=== PATIENT | female | born 2000 | race Caucasian/White ===

== ENCOUNTER 2018-11-07 21:27 | Inpatient (IN) | payer SELFPAY ==
--- NOTE | 2018-11-07 21:40 | PDOC ---
Rapid Medical Evaluation Chief Complaint: Pain Time Seen by Provider: 11/07/18 21:40 Medical Evaluation: Allergies Allergy/AdvReac Type Severity Reaction Status Date / Time No Known Allergies Allergy Verified 11/07/18 21:38 11/07/18 21:40 I have performed a brief in-person evaluation of this patient. The patient presents with a chief complaint of:generalized abd pain w/ n/v tonight. H/o same in past w/ last CT 09/30 which was read as ? mesenteric adenitis per records here Pertinent physical exam findings:stable and in NAD w/ benign abd I have ordered the following:labs The patient will proceed to the ED for further evaluation. 11/07/18 21:41 Discharge Disposition - Diagnosis Abdominal pain Qualifiers: Abdominal location: generalized Qualified Code(s): R10.84 - Generalized abdominal pain - Referrals - Patient Instructions - Post Discharge Activity
--- NOTE | 2018-11-07 22:38 | PDOC ---
History of Present Illness <Marcia Mg - Last Filed: 11/08/18 02:28> - History of Present Illness Initial Comments: 11/07/18 22:36 Ms. Castellano is a 18 yo female w/ pmh of obesity and mesenteric adenitis on CT 10/03 who presents for evaluation of nausea and vomiting. Patient reports she has had intermittent abdominal pain with nausea and occasional vomiting over the past month however presents as she has had 2 days of increased N/V and became concerned when she noted small amount of blood on latest vomit episode. Denies other symptoms at this time. The patient denies chest pain, shortness of breath, headache and dizziness. Denies fever, chills, diarrhea and constipation. Denies dysuria, frequency, urgency and hematuria. <Benito Euceda - Last Filed: 11/08/18 02:50> - General Chief Complaint: Pain Stated Complaint: ABD PAIN Time Seen by Provider: 11/07/18 21:40 Past History <Marcia Mg - Last Filed: 11/08/18 02:28> - Past Medical History Anemia: No Asthma: No Cancer: No Cardiac Disorders: No CVA: No COPD: No CHF: No - Surgical History Abdominal Surgery: No Appendectomy: No Gastric Stapling: No - Suicide/Smoking/Psychosocial Hx Smoking History: Never smoked <Benito Euceda - Last Filed: 11/08/18 02:50> - Past Medical History Allergies/Adverse Reactions: Allergies Allergy/AdvReac Type Severity Reaction Status Date / Time No Known Allergies Allergy Verified 11/07/18 21:38 Review of Systems - Review of Systems Comments:: 11/07/18 22:37 GENERAL/CONSTITUTIONAL: No fever or chills. No weakness. HEAD, EYES, EARS, NOSE AND THROAT: No change in vision. No ear pain or discharge. No sore throat. CARDIOVASCULAR: No chest pain or shortness of breath RESPIRATORY: No cough, wheezing, or hemoptysis. GASTROINTESTINAL: +N/V + nonspecific abdominal pain as described. No diarrhea or constipation. GENITOURINARY: No dysuria, frequency, or change in urination. MUSCULOSKELETAL: No joint or muscle swelling or pain. No neck or back pain. SKIN: No rash NEUROLOGIC: No headache, vertigo, loss of consciousness, or change in strength/ sensation. ENDOCRINE: No increased thirst. No abnormal weight change HEMATOLOGIC/LYMPHATIC: No anemia, easy bleeding, or history of blood clots. ALLERGIC/IMMUNOLOGIC: No hives or skin allergy. <Benito Euceda - Last Filed: 11/08/18 02:50> *Physical Exam - Vital Signs Last Vital Signs Temp Pulse Resp BP Pulse Ox 98.1 F 89 20 121/72 98 11/07/18 21:38 11/07/18 21:38 11/07/18 21:38 11/07/18 21:38 11/07/18 21:38 <Marcia Mg - Last Filed: 11/08/18 02:28> - Vital Signs Last Vital Signs Temp Pulse Resp BP Pulse Ox 98.1 F 89 20 121/72 98 11/07/18 21:38 11/07/18 21:38 11/07/18 21:38 11/07/18 21:38 11/07/18 21:38 - Physical Exam Comments: 11/07/18 22:37 GENERAL: Awake, alert, and fully oriented, in no acute distress HEAD: No signs of trauma, normocephalic, atraumatic EYES: PERRLA, EOMI, sclera anicteric, conjunctiva clear ENT: Auricles normal inspection, hearing grossly normal, nares patent, oropharynx clear without exudates. Moist mucosa NECK: Normal ROM, supple, no lymphadenopathy, JVD, or masses LUNGS: No distress, speaks full sentences, clear to auscultation bilaterally HEART: Regular rate and rhythm, normal S1 and S2, no murmurs, rubs or gallops, peripheral pulses normal and equal bilaterally. ABDOMEN: +Minimal RUQ ttp, soft, nontender, normoactive bowel sounds. No guarding, no rebound. No masses EXTREMITIES: Normal inspection, Normal range of motion, no edema. No clubbing or cyanosis. NEUROLOGICAL: Cranial nerves II through XII grossly intact. Normal speech, normal gait, no focal sensorimotor deficits SKIN: Warm, Dry, normal turgor, no rashes or lesions noted. <Benito Euceda - Last Filed: 11/08/18 02:50> ED Treatment Course - LABORATORY CBC & Chemistry Diagram: 11/07/18 23:44 11/07/18 23:44 - ADDITIONAL ORDERS Additional order review: Laboratory Results 11/08/18 11/08/18 11/07/18 00:51 00:51 23:44 Sodium 139 Potassium 4.0 Chloride 106 Carbon Dioxide 27 Anion Gap 7 L BUN 9 Creatinine 0.6 Creat Clearance w eGFR 127.45 Random Glucose 92 Calcium 8.9 Total Bilirubin 0.2 AST 14 L ALT 26 Alkaline Phosphatase 135 H Total Protein 6.8 Albumin 3.5 Lipase 100 Urine Color Yellow Urine Appearance Clear Urine pH 6.5 Ur Specific [place] 1.006 L Urine Protein Negative Urine Glucose (UA) Negative Urine Ketones Negative Urine Blood Negative Urine Nitrite Negative Urine Bilirubin Negative Urine Urobilinogen 0.2 Ur Leukocyte Esterase Negative Urine HCG, Qual Negative 11/07/18 23:44 RBC 4.47 MCV 91.8 MCHC 33.1 RDW 14.1 MPV 8.2 Neutrophils % 60.9 Lymphocytes % 30.4 Monocytes % 5.8 Eosinophils % 1.8 Basophils % 1.1 <Marcia Mg - Last Filed: 11/08/18 02:28> - LABORATORY CBC & Chemistry Diagram: 11/07/18 23:44 11/07/18 23:44 <Benito Euceda - Last Filed: 11/08/18 02:50> Medical Decision Making - Medical Decision Making 11/08/18 02:02 Ms. Castellano is a 18 yo female w/ pmh as described who presents for evaluation of blood in vomit. Patient evaluated with labs as below w/out concerning findings. Suspect patient has margoth-rosendo tear. Given patient has recent CT decision made to not repeat at this time. Patient well appearing; will f/u w/ GI for further evaluation. No concern for acute process at this time. 11/08/18 02:48 Patient noted to have increased pain to RUQ. Bedside US performed revealing concern for cholecystitis. Patient will be admitted for further inpatient GI evaluation and official US. <Benito Euceda - Last Filed: 11/08/18 02:50> *DC/Admit/Observation/Transfer - Discharge Dispostion Decision to Admit order: Yes <Marcia Mg - Last Filed: 11/08/18 02:28> <Benito Euceda - Last Filed: 11/08/18 02:50> Diagnosis at time of Disposition: Cholecystitis Abdominal pain Qualifiers: Abdominal location: generalized Qualified Code(s): R10.84 - Generalized abdominal pain - Discharge Dispostion Condition at time of disposition: Guarded - Referrals Referrals: Nicholas Farmer MD [Staff Physician] - - Patient Instructions Printed Discharge Instructions: DI for Abdominal Pain-Adult, DI for Vomiting - - Adult Additional Instructions: You were evaluated today in the ER for your symptoms. No concerning findings were found on labs and we provided you information for GI follow-up. Please make an appointment next week for further evaluation. Return to ER if any increase in pain, nausea, vomiting, or other concerning symptoms.
--- NOTE | 2018-11-07 23:28 | PDOC ---
Attending Attestation - HPI HPI: 11/08/18 00:01 The patient is a 18 year old female with no reported past medical history presents to the emergency department with nausea and vomiting for a month. The patient reports shes been having a month of nausea and vomiting, thats been increasing in frequency in the last couple of days. The patient reports an episode of emesis with a little bit of blood and was concerned. The patient reports she had a CT abdomen done in 10/03, which was significant for mesenteric adenitis. Denies fever, chills, cough, chest pain, SOB, urinary symptoms. - Medical Decision Making 11/08/18 00:01 Documentation prepared by Afia Vaz, acting as medical aide for Marcia gM MD. <Afia Vaz - Last Filed: 11/08/18 00:00> - Resident Resident Name: Benito Euceda - ED Attending Attestation I have performed the following: I have examined & evaluated the patient, The case was reviewed & discussed with the resident, I agree w/resident's findings & plan - HPI HPI: 11/08/18 05:10 Pt's mom had a cholecystectomy. - Physicial Exam PE: 11/08/18 05:07 Pt is obese Pt has RUQ pain and zacarias's sign. SHe was told in [place] that she has large gallstones. She had a fever at the time. She ate only salads and it improved. Now she is back to eating fatty foods. Earlier today she ate enchiladas. - Medical Decision Making 11/08/18 05:09 Bedside sono shows thickened GB was >3mm Pt has multiple large GB stones with shadowing in the GB. She will be given morphine for pain and abx and she will be admitted to med surg for surg eval and likely cholecystectomy. <Marcia Mg - Last Filed: 11/08/18 05:11>
[2018-11-08 00:28] LABS: ALBUMIN 3.5 g/dl (3.4-5.0); ALK PHOS 135 U/L (45-117); ANION GAP 7 MMOL/L (8-16); BILIRUBIN,TOTAL 0.2 mg/dL (0.2-1); BLOOD UREA NITROGEN 9 mg/dL (7-18); CALCIUM 8.9 mg/dL (8.5-10.1); CHLORIDE 106 mmol/L (98-107); CO2 27 mmol/L (21-32); CREATININE 0.6 mg/dL (0.55-1.3); GLUCOSE,RANDOM 92 mg/dL (74-106); LIPASE 100 U/L (73-393); SGOT/AST 14 U/L (15-37); SGPT/ALT 26 U/L (13-61); SODIUM 139 mmol/L (136-145); TOT PROT 6.8 g/dl (6.4-8.2)
[2018-11-08 00:33] LABS: BASO % 1.1 % (0-2.0); EOS % 1.8 % (0-4.5); HEMOGLOBIN 13.6 GM/dL (10.7-15.3); LYMPH % 30.4 % (8-40); MCH 30.4 pg (25.7-33.7); MCHC 33.1 g/dl (32.0-36.0); MEAN CELL VOLUME 91.8 fl (80-96); MEAN PLT VOLUME 8.2 fl (7.5-11.1); MONO % 5.8 % (3.8-10.2); NEUT % 60.9 % (42.8-82.8); PLATELET COUNT 320 K/MM3 (134-434); RBC 4.47 M/mm3 (3.60-5.2); RDW 14.1 % (11.6-15.6); WHITE BLOOD COUNT 13.5 K/mm3 (4.0-10.0)
[2018-11-08 00:58] LABS: PH,URINE 6.5 (5.0-8.0); URINE APPEARANCE CLEAR; URINE BILIRUBIN NEGATIVE (NEGATIVE); URINE COLOR YELLOW; URINE GLUCOSE (UA) NEGATIVE (NEGATIVE); URINE KETONE NEGATIVE (NEGATIVE); URINE LEUK ESTERASE NEGATIVE (NEGATIVE); URINE NITRITE NEGATIVE (NEGATIVE); URINE PROTEIN NEGATIVE (NEGATIVE); URINE UROBILINOGEN 0.2 mg/dL (0.2-1.0)
[2018-11-08] MEDS ORDERED: CEFTRIAXONE 1,000 MG in DEXTROSE 5%-WATER - 50 ML IVPB ONE (02:49)
[2018-11-08] MEDS ORDERED: morphine CARPU-JECT 2 MG/1 ML DISP.SYRIN IVPUSH ONE (02:49)
[2018-11-08] MEDS ORDERED: SODIUM CHLORIDE 0.9% 500 ML INFUS.BAG IV ONE (02:50)
[2018-11-08] MEDS ORDERED: MORPHINE SULFATE 2 MG/ML VIAL ONE (03:26)
[2018-11-08] MEDS ORDERED: CEFTRIAXONE 1 GM/50 ML BAG ONE (03:26)
--- NOTE | 2018-11-08 03:38 | PN ---
Teaching Attending Note Name of Resident: Anand Varner ATTENDING PHYSICIAN STATEMENT I saw and evaluated the patient. I reviewed the resident's note and discussed the case with the resident. I agree with the resident's findings and plan as documented. SUBJECTIVE: Patient is a 18 year old woman with PMH of obesity and mesenteric adenitis on CT 10/03/18 who presents for evaluation of nausea and vomiting. Patient reports she has had intermittent abdominal pain with nausea and occasional vomiting over the past month however presents as she has had 2 days of increased nausea/ vomiting and became concerned when she noted small amount of blood on latest vomit episode. The patient denies chest pain, shortness of breath, headache and dizziness. Denies fever, chills, diarrhea and constipation. Denies dysuria, frequency, urgency and hematuria. Has chronic recurrent constipation which is not helped by miralax. 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 Denies alcohol, tobacco or illicit drug use. LMP ended on October 29, 2018. OBJECTIVE: Alert Vital Signs Period Temp Pulse Resp BP Sys/Lamas Pulse Ox Last 24 Hr 98.1 F 89 20 121/72 98 HEENT: No Jaundice, eye redness or discharge, PERRLA, EOMI. Normocephalic, atraumatic. External ears are normal and hearing is grossly intact. No nasal discharge. Neck: Supple, nontender. No palpable adenopathy or thyromegaly. No JVD Chest: Good effort. Clear to auscultation and percussion. Heart: Regular. No S3, rub or murmur Abdomen: Not distended, soft, RUQ tenderness and no HSM. No rebound or guarding. Normal bowel sounds. Ext: Peripheral pulses intact. No leg edema. Skin: Warm and dry. No petechiae, rash or ecchymosis. Neuro: Alert. Oriented x3. CN 2-12 grossly intact. Sensation grossly intact in all four extremities and DTR are symmetric. Psych: Appropriate mood and affect. Good insight. Abnormal Lab Results 11/07/18 11/07/18 11/08/18 23:44 23:44 00:51 WBC 13.5 H Absolute Neuts (auto) 8.2 H Anion Gap 7 L AST 14 L Alkaline Phosphatase 135 H Ur Specific [place] 1.006 L ASSESSMENT AND PLAN: 1. Cholecystitis - Preliminary reading of ultrasound suggests cholecystitis. Will get HIDA scan. Getting IV NS, IV Rocephin, zofran and IV morphine for pain control. GI and surgery consults. 2. Obesity Counseled on the risks associated with obesity. Will provide patient all the necessary assistance, counseling and positive reinforcement to facilitate weight loss. Consult telemarketing fundraiser. 3. DVT prophylaxis - Lovenox 40 mg SQ q 24 hours. 4. Advance directives - Full code
[2018-11-08] MEDS ORDERED: ONDANSETRON 4 MG TABLET PO PRN (04:01)
--- NOTE | 2018-11-08 04:10 | HP ---
CHIEF COMPLAINT: Abd pain, nausea, vomiting PCP: Pt cannot remember name HISTORY OF PRESENT ILLNESS: 18yo F with no PMHx who presents with RUQ abdominal pain first started around 2 months ago. She reports 2 months ago in [place] she had some 7/10 abdominal pain for which she sought medical care. In [place] they performed an US which pt reports showed gallstones at that time. Pt's pain resolved, however within the past month the pain has increased in intensity and is causing her nausea and vomiting. Pt reports vomiting 2-3 times over the past week due to the nausea and having motrin with little relief. She came to the ED today due to notable streaks of blood in her emesis. Pt also endorses constipation which is a chronic problem for her; however her last BM was 1 day ago noted to be firm in character and normal in colour. Pt's LMP was 10/29/18. Pt denies fever/ chills, SOB, CP, palpitations, diarrhea, dysuria, polyuria, hematuria. Pt's pain and nausea markedly improved compared to beginning of visit Recent Travel: [place] PAST MEDICAL HISTORY: None PAST SURGICAL HISTORY: None Social History: Smoking: Denies Alcohol: Denies Drugs: Denies Family History: Noncontributory Allergies No Known Allergies Allergy (Verified 11/07/18 21:38) HOME MEDICATIONS: REVIEW OF SYSTEMS As per HPI PHYSICAL EXAMINATION Vital Signs - 24 hr 11/07/18 21:38 Temperature 98.1 F Pulse Rate 89 Respiratory 20 Rate Blood Pressure 121/72 O2 Sat by Pulse 98 Oximetry (%) GENERAL: NAD, awake, alert, and fully oriented HEENT: NC/AT, EOMI, YANET, sclera anicteric, MMM LUNGS: CTA. No wheezes, and no crackles. No accessory muscle use. HEART: RRR, normal S1 and S2 without murmur ABDOMEN: Soft, nondistended, normoactive BS, postive Quiñonez's sign. no hepatomegaly per percussion. no guarding. no suprapubic TTP MUSCULOSKELETAL: No CVA tenderness. EXTREMITIES: 2+ pulses, warm, well-perfused. No calf tenderness. No peripheral edema. PSYCHIATRIC: Cooperative. Good eye contact. Appropriate mood and affect. SKIN: Warm, dry, no rashes or lesions noted Laboratory Results 11/07/18 11/07/18 11/08/18 23:44 23:44 00:51 WBC 13.5 H RBC 4.47 Hgb 13.6 Hct 41.0 MCV 91.8 MCH 30.4 MCHC 33.1 RDW 14.1 Plt Count 320 MPV 8.2 Absolute Neuts (auto) 8.2 H Neutrophils % 60.9 Lymphocytes % 30.4 Monocytes % 5.8 Eosinophils % 1.8 Basophils % 1.1 Nucleated RBC % 0 Sodium 139 Potassium 4.0 Chloride 106 Carbon Dioxide 27 Anion Gap 7 L BUN 9 Creatinine 0.6 Creat Clearance w eGFR 127.45 Random Glucose 92 Calcium 8.9 Total Bilirubin 0.2 AST 14 L ALT 26 Alkaline Phosphatase 135 H Total Protein 6.8 Albumin 3.5 Lipase 100 Urine Color Yellow Urine Appearance Clear Urine pH 6.5 Ur Specific [place] 1.006 L Urine Protein Negative Urine Glucose (UA) Negative Urine Ketones Negative Urine Blood Negative Urine Nitrite Negative Urine Bilirubin Negative Urine Urobilinogen 0.2 Ur Leukocyte Esterase Negative Urine HCG, Qual 11/08/18 00:51 WBC RBC Hgb Hct MCV MCH MCHC RDW Plt Count MPV Absolute Neuts (auto) Neutrophils % Lymphocytes % Monocytes % Eosinophils % Basophils % Nucleated RBC % Sodium Potassium Chloride Carbon Dioxide Anion Gap BUN Creatinine Creat Clearance w eGFR Random Glucose Calcium Total Bilirubin AST ALT Alkaline Phosphatase Total Protein Albumin Lipase Urine Color Urine Appearance Urine pH Ur Specific [place] Urine Protein Urine Glucose (UA) Urine Ketones Urine Blood Urine Nitrite Urine Bilirubin Urine Urobilinogen Ur Leukocyte Esterase Urine HCG, Qual Negative ASSESSMENT/PLAN: Biliary colic Sarah-Bo tears Leukocytosis Obesity --ED staff POC US showing thickened GB wall with limited minimal CBD visualization --Obtain RUQ US for official report --Leukocytosis with possible reactive changes vs. possible cholecystitis --Rocephin 1gm qDaily in ED --Sarah-Bo tearing nonconcerning Pending above evaluation, consider surgical vs. gi consult FEN: Fluids: None indicated Electrolyte abnormalities: None Nutrition: Fat-controlled PPX: DVT - Early ambulation/low risk Dispo: Obs Case discussed with Ifudu Visit type - Emergency Visit Emergency Visit: Yes ED Registration Date: 11/08/18 Care time: The patient presented to the Emergency Department on the above date and was hospitalized for further evaluation of their emergent condition. - New Patient This patient is new to me today: Yes Date on this admission: 11/08/18 - Critical Care Critical Care patient: No
[2018-11-08] MEDS ORDERED: MORPHINE SULFATE 2 MG/ML VIAL IVPUSH PRN (04:11)
[2018-11-08 06:11] VITALS: BMI 34.4
[2018-11-08 09:40] VITALS: BP 105/65
[2018-11-08] MEDS ORDERED: DEXTROSE 5%-0.45% SALINE 1,000 ML IV SCH ×2 (15:00)
[2018-11-08 15:09] VITALS: PULSE 70; TEMP 98.2
--- NOTE | 2018-11-10 10:25 | EKG ---
Test Reason : Blood Pressure : / mmHG Vent. Rate : 069 BPM Atrial Rate : 069 BPM P-R Int : 130 ms QRS Dur : 080 ms QT Int : 382 ms P-R-T Axes : 018 023 007 degrees QTc Int : 409 ms NORMAL SINUS RHYTHM NORMAL ECG NO PREVIOUS ECGS AVAILABLE Confirmed by PEÑA SO MD ([id number]) on 11/10/2018 10:24:42 AM Referred By: Confirmed By:PEÑA SO MD
== END 2018-11-08 18:24 | disposition left against medical advice (07) ==
LOC: JER 21:27 → JERBED 11-08 02:28 → INTOOBSV 11-08 02:28 → J8W 11-08 05:56 → OBSVTOIN 11-08 14:50
PROVIDERS: ADMIT Internal Medicine; ATTEND Internal Medicine
DX: K80.10 Calculus of gallbladder with chronic cholecystitis without obstruction (principal); E66.9 Obesity, unspecified; D72.829 Elevated white blood cell count, unspecified; K59.00 Constipation, unspecified; K92.0 Hematemesis; I88.0 Nonspecific mesenteric lymphadenitis; K22.6 Gastro-esophageal laceration-hemorrhage syndrome
CPT/HCPCS: 36415; 71045-TC-FY; 76705-TC; 80053; 81003; 83690; 84703; 85025; 93005; 93010; 99283-25; G0378